=== PATIENT | male | born 1955 | race Caucasian/White ===

== ENCOUNTER 2017-08-17 16:22 | Emergency (ER) | payer OTHER ==
[2017-08-17] MEDS ORDERED: DIPH,PERTUS(ACELL)TETVAC-LF 0.5 ML VIAL IM ONE (18:31)
--- NOTE | 2017-08-17 18:37 | ED ---
General Adult HPI - General Chief complaint: Wound/Laceration Stated complaint: Arm laceration Time Seen by Provider: 08/17/17 17:52 Source: patient, RN notes reviewed Mode of arrival: ambulatory Limitations: no limitations - History of Present Illness Initial comments: 62-year-old male presents to the emergency department for a chief complaint of laceration to the right volar forearm about one hour ago. Patient states he was putting shingles back on the roof because they were falling off in the winds when he fell about 8 feet off the ladder onto his side. He fell on soft grass. Patient denies any pain in the left side of his body. Patient denies any pain in his knee but states there is a small scrape. Patient states he can' t walk without any difficulty. Patient denies any tenderness in any of the extremities besides right around where the laceration is. Patient denies hitting his head or any pain in his neck or back. Patient denies pain in the back and neck with movement. Patient has no other complaints at this time. Patient denies any shortness of breath, chest pain, abdominal pain, nausea or vomiting or visual changes. - Related Data Allergies Allergy/AdvReac Type Severity Reaction Status Date / Time No Known Allergies Allergy Verified 08/17/17 16:40 Review of Systems ROS Statement: Those systems with pertinent positive or pertinent negative responses have been documented in the HPI. ROS Other: All systems not noted in ROS Statement are negative. Past Medical History Past Medical History: Hyperlipidemia History of Any Multi-Drug Resistant Organisms: None Reported Past Surgical History: No Surgical Hx Reported Past Psychological History: No Psychological Hx Reported Smoking Status: Former smoker Past Alcohol Use History: None Reported Past Drug Use History: None Reported General Exam Limitations: no limitations General appearance: alert, in no apparent distress Head exam: Present: atraumatic, normocephalic, normal inspection Eye exam: Present: normal appearance, PERRL, EOMI. Absent: scleral icterus, conjunctival injection, nystagmus, periorbital swelling ENT exam: Present: normal exam, normal oropharynx, mucous membranes moist, TM's normal bilaterally Neck exam: Present: normal inspection, full ROM (Patient has full flexion and extension and rotation and lateral bending of the neck with out any pain or difficulty.). Absent: tenderness, meningismus, lymphadenopathy Respiratory exam: Present: normal lung sounds bilaterally. Absent: respiratory distress, wheezes, rales, rhonchi, stridor Cardiovascular Exam: Present: regular rate, normal rhythm, normal heart sounds. Absent: systolic murmur, diastolic murmur, rubs, gallop, clicks Extremities exam: Present: full ROM (Full range of motion of all extremities including the right upper extremity. Full range of motion in the left knee.), tenderness (No tenderness in all 4 extremities. No tenderness to the left knee or right forearm.), normal capillary refill (Refill less than 2 seconds in the right upper extremity. Radial pulse 2+.), other (There is a 1.5 cm laceration on the mid volar aspect of the right forearm). Absent: joint swelling Course Vital Signs 08/17/17 16:37 Temperature 97.3 F L Pulse Rate 100 Respiratory 18 Rate Blood Pressure 180/93 O2 Sat by Pulse 98 Oximetry Procedures - Procedures Initial comment: Body area: mid Volar aspect of right forearm Laceration length: 1.5 cm Foreign bodies: no foreign bodies Tendon involvement: none Nerve involvement: none Vascular damage: no Anesthesia: local infiltration Local anesthetic: 3 mL 1% lidocaine Preparation: Patient was prepped and draped in the usual sterile fashion. Irrigation solution: saline Irrigation method:saline jet lavage, also cleaned with iodine Skin closure:5-0 Ethilon using sterile technique Number of sutures: 4 Technique: interupted Dressing: antibiotic ointment/ gauze Patient tolerance: Patient tolerated the procedure well with no immediate complications. Medical Decision Making - Medical Decision Making 62-year-old male presents to the emergency department for chief complaint of laceration to the right forearm 1 hour. Patient fell off a ladder at about 8 feet but had no other injuries. Patient did not hit his head or lose consciousness. Patient denies any pain in the neck, back, ribs or any extremities. Patient has full range of motion of all extremities. There is a small scrape on the left knee. He has full range of motion the left knee and no tenderness to palpation. Neurovascular intact in the left leg. Patient is able to walk on the knee without any pain. Patient does have a small 1.5 cm laceration on the volar aspect of the right forearm. He can freely move the arm and hands. No pain in the elbow or wrist. No scaphoid tenderness. X-ray of the right forearm shows no acute fractures, dislocations, or foreign bodies. Laceration was cleaned, sutured, covered with bacitracin and gauze. Patient will monitor for signs of infection. He will follow up with primary care in 1- 2 days. He will return in 7-10 days to have sutures removed. Disposition Clinical Impression: Laceration Disposition: HOME SELF-CARE Condition: Good Instructions: Care For Your Stitches (ED), Laceration (ED) Additional Instructions: Please use bacitracin daily for the next few days. You may keep it covered for the next few days and then leave it open to air. Do not submerge it in water for the next 48 hours, but you may shower. Monitor for any signs of infection including spreading redness, streaking redness, or drainage or fever. Return in 7-10 days to have sutures removed. Follow up with primary care in 1-2 days as discussed. Is patient prescribed a controlled substance at d/c from ED?: No Referrals: Caio Doss DO [Primary Care Provider] - 1-2 days Time of Disposition: 19:18
--- NOTE | 2017-08-17 19:25 | XR ---
PROCEDURE: XR forearm RT, 2 views DATE AND TIME: 08/17/2017 6:26 PM REFERRING PHYSICIAN: Prabhu Washington CLINICAL INDICATION: PHH, Pain TECHNIQUE: Department protocol. COMPARISON: None FINDINGS: There is no fracture or malalignment. The soft tissues are unremarkable; negative for radiopaque foreign body or soft tissue emphysema. IMPRESSION: NO ACUTE PROCESS.
[2017-08-17 20:01] VITALS: BP 158/86; PULSE 98; RESP 20; TEMP 97.6
== END 2017-08-17 20:00 | disposition home or self-care (01) ==
LOC: EC 16:22
DX: S51.811A Laceration without foreign body of right forearm, initial encounter (principal); Z87.891 Personal history of nicotine dependence; Z23 Encounter for immunization; W11.XXXA Fall on and from ladder, initial encounter; Y93.89 Activity, other specified
CPT/HCPCS: 12001; 90471; 90715; 99283